=== PATIENT | female | born 1965 | race Caucasian/White ===

== ENCOUNTER 2017-08-13 15:23 | Emergency (ER) | payer BC ==
[~2017-08-13] VITALS: Ht 162.6 cm; Wt 68.2 kg
[~2017-08-13 15:23] MED LIST: CYAN100T PO; LRT5 PO; NITR-5 PO; PHEN-876 PO
[2017-08-13 15:32] VITALS: Ht 162.6 cm; Wt 68.2 kg
[2017-08-13] MEDS ORDERED: KETOROLAC TROMETHAMINE 30 MG/ML VIAL IV STA (15:48)
[2017-08-13] MEDS ORDERED: ONDANSETRON INJ 2 MG/ML 2 ML VIAL IV STA (15:48)
[2017-08-13] MEDS ORDERED: SODIUM CHLORIDE 0.9% 1000ML 1,000 ML IV STA ×2 (15:48→17:06)
[2017-08-13] MEDS ORDERED: ACETAMINOPHEN 500 MG TAB PO STA (15:48)
--- NOTE | 2017-08-13 16:21 | EMERGENCY ROOM VISIT NOTE ---
History First contact with patient: 15:34 Chief Complaint: FEVER Stated Complaint: FEVER, WEAKNESS, HURTS ALL OVER History of Present Illness The patient is a 51 year old female who presents to the Emergency Room with complaints of fever and bodyaches. The patient reports that 2 days ago, she began feeling achy "all over." She reports that yesterday, she developed increased fatigue and developed sweats. She states she has had fevers from 100 103F. She reports a cough, sore throat, headache, and swollen glands in her neck. She has had nausea and has dry heaves whenever she tries to eat or drink anything. She reports feeling generally weak. The patient does report she received a flu vaccine this year. She denies abdominal pain, urinary symptoms or chest pain. 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 She denies any sick contacts. Review of Systems A complete 10 point review of systems was reviewed with the patient with pertinent positives and negatives as per history of present illness. All else were negative. Social History Smoking Status: Never Smoker Current/Historical Medications Scheduled Azithromycin (Zithromax), 250 MG PO DAILY Bioflavonoid Products (Judi-C), 1 TAB PO DAILY Qzuhpzi-Mintxhibp-Derd (Calcium & Magnesium + Zin 334-134-5 mg), 1 TAB PO DAILY [Musselex Supplement], 1 CAP PO TID Physical Exam Vital Signs Date Time Temp Pulse Resp B/P (MAP) Pulse Ox O2 Delivery O2 Flow Rate FiO2 08/13/17 20:00 38.1 78 18 104/54 94 08/13/17 19:45 78 18 104/54 94 Room Air 08/13/17 18:30 82 16 104/52 93 Room Air 08/13/17 17:03 38.1 96 16 92/43 95 Room Air 08/13/17 15:32 37.6 115 18 111/71 98 Room Air Physical Exam VITALS: Vitals are noted on the nurse's note and reviewed by myself. Vital signs stable. GENERAL: This is a 51-year-old female, ill-appearing, well-developed well- nourished. SKIN: The skin was without rashes. EARS: External auditory canals clear, tympanic membranes pearly rodriguez without erythema or effusion bilaterally. EYES: Pupils equal round and reactive to light and accommodation. MOUTH: Mucous membranes moist. Tonsils are not enlarged. Pharynx is mildly erythematous. NECK: Supple without nuchal rigidity. Right anterior cervical lymphadenopathy. Full range of motion of the neck. No meningismus. HEART: Regular rate and rhythm without murmurs gallops or rubs. LUNGS: Clear to auscultation bilaterally without wheezes, rales or rhonchi. ABDOMEN: Soft, nontender to palpation. NEURO: Patient was alert and oriented to person place and time. Medical Decision & Procedures Laboratory Results 08/13/17 16:07 Red Blood Count 4.16, Mean Corpuscular Volume 83.4, Mean Corpuscular Hemoglobin 29.3, Mean Corpuscular Hemoglobin Concent 35.2, Mean Platelet Volume 11.0, Neutrophils (%) (Auto) 87.1, Lymphocytes (%) (Auto) 6.7, Monocytes (%) (Auto) 5.9, Eosinophils (%) (Auto) 0.0, Basophils (%) (Auto) 0.2, Neutrophils # (Auto) 9.73, Lymphocytes # (Auto) 0.75, Monocytes # (Auto) 0.66, Eosinophils # (Auto) 0.00, Basophils # (Auto) 0.02 08/13/17 16:07 Test 08/13/17 16:07 08/13/17 16:49 08/13/17 17:45 08/13/17 18:30 White Blood Count 11.17 K/uL (4.8-10.8) Red Blood Count 4.16 M/uL (4.2-5.4) Hemoglobin 12.2 g/dL (12.0-16.0) Hematocrit 34.7 % (37-47) Mean Corpuscular Volume 83.4 fL (80-100) Mean Corpuscular Hemoglobin 29.3 pg (25-34) Mean Corpuscular Hemoglobin Concent 35.2 g/dl (32-36) Platelet Count 204 K/uL (130-400) Mean Platelet Volume 11.0 fL (7.4-10.4) Neutrophils (%) (Auto) 87.1 % Lymphocytes (%) (Auto) 6.7 % Monocytes (%) (Auto) 5.9 % Eosinophils (%) (Auto) 0.0 % Basophils (%) (Auto) 0.2 % Neutrophils # (Auto) 9.73 K/uL (1.4-6.5) Lymphocytes # (Auto) 0.75 K/uL (1.2-3.4) Monocytes # (Auto) 0.66 K/uL (0.11-0.59) Eosinophils # (Auto) 0.00 K/uL (0-0.5) Basophils # (Auto) 0.02 K/uL (0-0.2) RDW Standard Deviation 42.3 fL (36.4-46.3) RDW Coefficient of Variation 14.0 % (11.5-14.5) Immature Granulocyte % (Auto) 0.1 % Immature Granulocyte # (Auto) 0.01 K/uL (0.00-0.02) Anion Gap 9.0 mmol/L (3-11) Est Creatinine Clear Calc Drug Dose 82.3 ml/min Estimated GFR () 105.5 Estimated GFR (Non- 91.0 BUN/Creatinine Ratio 14.3 (10-20) Calcium Level 8.6 mg/dl (8.5-10.1) Total Bilirubin 0.6 mg/dl (0.2-1) Aspartate Amino Transf (AST/SGOT) 10 U/L (15-37) Alanine Aminotransferase (ALT/SGPT) 19 U/L (12-78) Alkaline Phosphatase 93 U/L (45-117) Total Protein 7.2 gm/dl (6.4-8.2) Albumin 3.6 gm/dl (3.4-5.0) Globulin 3.6 gm/dl (2.5-4.0) Albumin/Globulin Ratio 1.0 (0.9-2) Lyme Disease IgG Antibody NEG (NEG) Lyme Disease IgM Antibody NEG (NEG) Monoscreen NEG (NEG) Influenza Type A Antigen Neg for Influ A (NEG) Influenza Type B Antigen Neg for Influ B (NEG) Urine Color YELLOW Urine Appearance CLEAR (CLEAR) Urine pH 8.0 (4.5-7.5) Urine Specific [place] 1.020 (1.000-1.030) Urine Protein NEG (NEG) Urine Glucose (UA) NEG (NEG) Urine Ketones 2+ (NEG) Urine Occult Blood NEG (NEG) Urine Nitrite NEG (NEG) Urine Bilirubin NEG (NEG) Urine Urobilinogen NEG (NEG) Urine Leukocyte Esterase NEG (NEG) Lactic Acid Level 0.6 mmol/L (0.4-2.0) CSF Color COLORLESS CSF Appearance CLEAR CSF WBC 0 /uL (0-5) CSF RBC 13 /uL (0) CSF Xanthrochromic NO XANTHOCHROMIA CSF Cell Count Tube # 3 CSF Chemistry Tube # 2 CSF Glucose 65 mg/dl (40-70) CSF Total Protein 20.7 mg/dl (15.0-45.0) Medications Administered Medications (Trade) Dose Ordered Sig/Bud Route Start Time Stop Time Status Last Admin Dose Admin Sodium Chloride 1,000 ml @ 999 mls/hr Q1H1M STAT IV 08/13/17 15:48 08/13/17 16:48 DC 08/13/17 16:06 999 MLS/HR Ketorolac Tromethamine (Toradol Inj) 30 mg NOW STAT IV 08/13/17 15:48 08/13/17 15:50 DC 08/13/17 16:05 30 MG Ondansetron HCl (Zofran Inj) 4 mg NOW STAT IV 08/13/17 15:48 08/13/17 15:50 DC 08/13/17 16:05 4 MG Acetaminophen (Tylenol Tab) 1,000 mg NOW STAT PO 08/13/17 15:48 08/13/17 15:50 DC 08/13/17 16:05 1,000 MG Sodium Chloride 1,000 ml @ 999 mls/hr Q1H1M STAT IV 08/13/17 17:06 08/13/17 18:06 DC 08/13/17 17:06 999 MLS/HR Azithromycin (Zithromax Tab) 500 mg NOW STAT PO 08/13/17 19:37 08/13/17 19:39 DC 08/13/17 19:45 500 MG ED Course The patient was evaluated as above. Labs were drawn and IV access was obtained. Patient was medicated with 1 liter NSS, 30 mg Toradol IV, 1 gm Tylenol, and 4 mg Zofran. Patient was reevaluated and stated she was feeling slightly better. Patient was revitaled and is hypotensive. She reports headache and neck pain. Lumbar puncture was performed. Patient was reevaluated and was feeling slightly better. Discharge instructions were reviewed with the patient. The patient verbalized understanding of my assessment and treatment plan and was discharged home in good condition. Medical Decision Differential diagnosis includes influenza, pneumonia, viral illness, mononucleosis, meningitis, encephalitis, urinary tract infection, sepsis, among others. The patient is a 51-year-old female who presents today complaining of flu-like symptoms. Labs revealed a mild leukocytosis. Influenza and mono testing negative. No concerning electrolyte abnormalities. Urinalysis was not suggestive of infection. The patient did become hypotensive during her stay. On reevaluation she was complaining of headache and neck pain. I did feel it was important to rule out meningitis and lumbar puncture was performed. There is no evidence of meningitis. Blood cultures were obtained and pending. Lactic acid was not elevated. Patient was hydrated and did feel better after 2 L of normal saline. There were some possible infectious findings on the chest x-ray and patient will be placed on Zithromax. She was instructed to use Tylenol and ibuprofen for pain. She was instructed to follow-up with her primary care provider within 2 days or return here for any worsening symptoms. The patient's case was reviewed with Dr. Henriquez, ED attending physician, who agreed with my assessment and treatment plan. Based on the patient's presentation and work up, I feel the patient is stable for outpatient treatment. The patient was educated to return to the emergency department for any worsening of their current condition or new/concerning symptoms. She will follow up with her PCP. Medication Reconcilliation Current Medication List: was personally reviewed by me Blood Pressure Screening Patient's blood pressure: Normal blood pressure Impression Primary Impression: Influenza-like symptoms Departure Information Dispostion Home / Self-Care Condition GOOD Prescriptions Azithromycin (Zithromax) 250 Mg Tab 250 MG PO DAILY for 4 Days, #4 TAB Prov: Елена Yanes .DAVID 08/13/17 Referrals August Jones M.D. (PCP) Patient Instructions [facility] Additional Instructions Antibiotics as prescribed. For pain/fever control, you can use the following todm-ugm-pojlaib medicines ( if >12 yo): - Regular strength (325mg/tab) Tylenol (acetaminophen) 2 tabs every 4-6 hours as needed. Do not exceed 12 tablets in a 24 hour period. Avoid taking more than 4 grams (4000 mg) of Tylenol per day. This includes any other sources of acetaminophen you may take on a regular basis. - Regular strength (200 mg/tab) Advil (ibuprofen) 1-2 tabs every 4-6 hours as needed. Do not exceed a dose of 3200 mg per day. Make sure to rest and drink plenty of fluids. Follow-up with your primary care provider within 2-3 days for a recheck. Return to the emergency department with worsening headache, high fevers not controlled by Tylenol/ibuprofen, shortness of breath, or any other new/ concerning symptoms.
--- NOTE | 2017-08-13 16:26 | DIAGNOSTIC IMAGING REPORT ---
CHEST ONE VIEW PORTABLE CLINICAL HISTORY: Cough and fever. COMPARISON STUDY: No previous studies for comparison. FINDINGS: Lung volumes are normal. There is no pneumothorax or pleural effusion. There is no lobar consolidation. Cardiac size is within normal limits. Mediastinal contours are unremarkable. There is lower lung interstitial thickening. IMPRESSION: 1. No consolidation. 2. Lower lung interstitial thickening. This likely reflects normal vasculature. An infectious process could appear similar. Electronically signed by: Vinnie Eubanks M.D. 08/13/2017 4:24 PM Dictated Date/Time: 08/13/2017 4:23 PM
[2017-08-13 16:34] LABS: BASO % 0.2 %; BASO ABS # 0.02 K/uL (0-0.2); COMPLETE YES; HEMATOCRIT 34.7 % (37-47); IG% 0.1 %; LYMPH % 6.7 %; LYMPH ABS # 0.75 K/uL (1.2-3.4); MEAN CELL VOLUME 83.4 fL (80-100); MEAN CORPUSCULAR HEMOGLOBIN 29.3 pg (25-34); MEAN CORPUSCULAR HGB CONC 35.2 g/dl (32-36); MONO % 5.9 %; NEUT % 87.1 %; PLATELET COUNT 204 K/uL (130-400); RED BLOOD COUNT 4.16 M/uL (4.2-5.4); WHITE BLOOD COUNT 11.17 K/uL (4.8-10.8)
[2017-08-13] MEDS ORDERED: [UNRECOGNIZED DRUG - OTHER] PO (16:36)
[2017-08-13] MEDS ORDERED: BIOF500T PO (16:36)
[2017-08-13] MEDS ORDERED: CALC-478 PO (16:36)
[2017-08-13 16:52] LABS: BUN/CREATININE RATIO 14.3 (10-20); CALCIUM 8.6 mg/dl (8.5-10.1); CREATININE 0.75 mg/dl (0.60-1.20); POTASSIUM 3.5 mmol/L (3.5-5.1)
[2017-08-13 17:13] LABS: URINE APPEARANCE CLEAR (CLEAR); URINE BILIRUBIN NEG (NEG); URINE COLOR YELLOW; URINE NITRITE NEG (NEG); UROBILINOGEN NEG (NEG); ZZUR CULT IF INDIC CLEAN CATCH NO
[2017-08-13 17:16] LABS: MANUAL MICROSCOPIC REQUIRED? NO; REVIEW REQ? NO
--- NOTE | 2017-08-13 18:30 | EMERGENCY ROOM VISIT NOTE ---
ED Visit Note First contact with patient: 17:13 This Patient was discussed with the physician Hardening Machine Operator Helper, Елена Yanes PA-C. The pertinent historical and physical exam findings were confirmed. I agree with the studies ordered and with the interpretations of these studies. I agree with the disposition and care plan. Lumbar Puncture Indication: Headache. Verbal consent was obtained after the risks and benefits were explained, including but not limited to headache, bleeding/clotting, scarring, infection, pain, and bone/joint/nerve damage. At this time, the risks of the procedure are less than the risks of NOT performing the procedure. A time out was taken and the correct patient and site identified. The patient was placed in the Seated position and the back was prepped with betadine and draped in the standard fashion. The L3 intervertebral space was identified, anesthetized locally with 1 % lidocaine without epinephrine, and the spinal needle was inserted through the skin with the bevel parallel to the dural fibers. The needle was carefully advanced into the lumbar cistern and 4 tubes of clear CSF was obtained. The stylet was replaced and the needle was removed. A bandaid was placed and the patient was placed in the supine position. The patient tolerated the procedure well and there were no complications.
[2017-08-13 18:52] LABS: CSF APPEARANCE CLEAR; CSF COLOR COLORLESS; CSF XANTHOCHROMIC NO XANTHOCHROMIA
[2017-08-13 18:57] LABS: LYME DISEASE AB IGG NEG (NEG); LYME DISEASE AB IGM NEG (NEG)
[2017-08-13 19:02] LABS: CSF CHEMISTRY TUBE # 2
[2017-08-13 19:03] LABS: CSF TOTAL PROTEIN 20.7 mg/dl (15.0-45.0)
[2017-08-13] MEDS ORDERED: AZITHROMYCIN 250 MG TAB PO STA (19:37)
[2017-08-13] MEDS ORDERED: AZIT250T PO (19:45)
[2017-08-13 20:00] VITALS: BP 104/54; PULSE 78; TEMP 38.1; O2SAT 94
== END 2017-08-13 20:00 | disposition home or self-care (01) ==
LOC: C.EDB 15:24
DX: R50.9 Fever, unspecified (principal); R05 Cough; J02.9 Acute pharyngitis, unspecified; R53.1 Weakness